=== PATIENT | female | born 1985 | race Hispanic/Latino ===

== ENCOUNTER 2024-01-22 20:00 | Emergency (ER) | payer SELFPAY | END 2024-01-22 21:59 | disposition home or self-care (01) | LOC: ERS 20:00 | DX: S80.12XA Contusion of left lower leg, initial encounter (principal); V40.3XXA Unspecified car occupant injured in collision with pedestrian or animal in nontraffic accident, initial encounter; Y92.481 Parking lot as the place of occurrence of the external cause | CPT/HCPCS: 99283 ==